=== PATIENT | female | born 1950 | race Caucasian/White ===

== ENCOUNTER → 2016-12-09 | Outpatient (CLI) | payer MEDICARE, OTHER ==
[~2016-12-09] MED LIST: ALFALFA250 MG PO; GLUCOPHAGE500 MG/TAB PO; LEVOXYL0.125 MG PO; MULTIPLE VITAMI1 CAP PO; [UNRECOGNIZED DRUG - OTHER] PO
== END ==
LOC: MC.RAD 13:04
DX: Z12.31 Encounter for screening mammogram for malignant neoplasm of breast (principal)

== ENCOUNTER → 2018-03-30 | Outpatient (CLI) | payer MEDICARE, OTHER | LOC: MC.RAD 09:00 | DX: Z12.31 Encounter for screening mammogram for malignant neoplasm of breast (principal) ==

== ENCOUNTER 2019-03-18 15:30 | Emergency (ER) | payer MEDICARE, OTHER ==
[~2019-03-18] VITALS: Ht 160 cm; Wt 63.2 kg
[2019-03-18 15:37] VITALS: TEMP 96.9
[2019-03-18 15:54] LABS: BASO % 0.3 % (0.0-2.0); EOS # 0.1 (0.0-0.7); EOS % 1.3 % (0-4.0); GRAN # 6.2 (1.4-6.5); GRAN % 60.2 % (42.2-75.2); HEMATOCRIT 43.1 % (37.0-47.0); HEMOGLOBIN 14.4 g/dl (12.5-16.0); LYMPH % 29.1 % (20.0-51.0); MEAN CELL VOLUME 88 fl (80.0-100.0); MEAN CORPUSCULAR HEMOGLOBIN 29 pg (27.0-31.0); MEAN CORPUSCULAR HGB CONC 33 g/dl (33.0-37.0); MEAN PLATELET VOLUME 10.6 fl (7.4-10.4); MONO # 0.9 (0.1-0.6); MONO % 8.8 % (1.7-9.3); PLATELET COUNT 276 K/mm3 (130-400); RED BLOOD COUNT 4.89 M/mm3 (4.10-5.30)
[2019-03-18 16:09] LABS: INR 0.8 (0.8-3.0); PROTHROMBIN TIME 9.3 SECONDS (9.7-12.8)
[2019-03-18 16:11] LABS: ALANINE AMINOTRANSFERASE 8 U/L (9-52); ALBUMIN 4.3 gm/dL (3.5-5.0); ALKALINE PHOSPHATASE 99 U/L (50-136); ANION GAP 8 mmol/L (7-16); AST,SGOT 22 U/L (15-37); BILIRUBIN,TOTAL 0.6 mg/dL (0.0-1.0); BLOOD UREA NITROGEN 13 mg/dL (7-17); CALCIUM 9.3 mg/dL (8.4-10.2); CARBON DIOXIDE 23 mmol/L (22-30); CHLORIDE 108 mmol/L (98-107); CREATININE, serum 0.93 (0.52-1.25); GLUCOSE 132 mg/dL (74-106); PARTIAL THROMBOPLASTIN TIME 32.4 SECONDS (26.0-37.0); POTASSIUM 3.7 mmol/L (3.4-5.0); SODIUM 139 mmol/L (137-145); TOTAL PROTEIN 7.1 gm/dL (6.4-8.2)
[2019-03-18 16:15] VITALS: BP 133/77; PULSE 69
[2019-03-18] MEDS ORDERED: ZESTRIL 10MG10 MG PO (16:18)
[2019-03-18] MEDS ORDERED: NORVASC 10MG10 MG PO (16:18)
[2019-03-18] MEDS ORDERED: PROBIOTIC FORMU1 CAP PO (16:21)
[2019-03-18 16:33] LABS: TROPONIN-I < 0.012 ng/mL (0.000-0.035)
== END 2019-03-18 16:40 | disposition short-term general hospital (02) ==
LOC: COL.ER 15:30
PROVIDERS: Emergency Medicine
DX: I21.09 ST elevation (STEMI) myocardial infarction involving other coronary artery of anterior wall (principal); I10 Essential (primary) hypertension; E11.9 Type 2 diabetes mellitus without complications; Z79.84 Long term (current) use of oral hypoglycemic drugs
CPT/HCPCS: J1644; J3101; J7030

== ENCOUNTER → 2019-04-10 | Outpatient (CLI) | payer MEDICARE, OTHER ==
[~2019-04-10] MED LIST changes: +NORVASC 10MG10 MG PO; +PROBIOTIC FORMU1 CAP PO; +ZESTRIL 10MG10 MG PO
== END ==
LOC: MC.RAD 09:35
DX: Z12.31 Encounter for screening mammogram for malignant neoplasm of breast (principal); N63.10 Unspecified lump in the right breast, unspecified quadrant

== ENCOUNTER 2019-06-24 22:18 | Emergency (ER) | payer MEDICARE ==
[~2019-06-24] VITALS: Ht 160 cm; Wt 61.8 kg
[2019-06-24 22:48] LABS: HEMATOCRIT 38.1 % (37.0-47.0); HEMOGLOBIN 12.6 g/dl (12.5-16.0); MEAN CELL VOLUME 87 fl (80.0-100.0); MEAN CORPUSCULAR HEMOGLOBIN 29 pg (27.0-31.0); MEAN CORPUSCULAR HGB CONC 33 g/dl (33.0-37.0); MEAN PLATELET VOLUME 10.6 fl (7.4-10.4); PLATELET COUNT 187 K/mm3 (130-400); RED BLOOD COUNT 4.36 M/mm3 (4.10-5.30); REDCELL DISTRIBUTION WIDTH-CV 13.4 % (11.5-14.5)
[2019-06-24 22:59] LABS: ALANINE AMINOTRANSFERASE 27 U/L (9-52); ALBUMIN 3.8 gm/dL (3.5-5.0); ALKALINE PHOSPHATASE 102 U/L (50-136); ANION GAP 11 mmol/L (7-16); AST,SGOT 25 U/L (15-37); BILIRUBIN,TOTAL 1.4 mg/dL (0.0-1.0); BLOOD UREA NITROGEN 26 mg/dL (7-17); CALCIUM 8.7 mg/dL (8.4-10.2); CARBON DIOXIDE 20 mmol/L (22-30); CHLORIDE 104 mmol/L (98-107); CREATININE, serum 1.11 (0.52-1.25); GLUCOSE 165 mg/dL (74-106); POTASSIUM 3.7 mmol/L (3.4-5.0); SODIUM 135 mmol/L (137-145); TOTAL PROTEIN 6.7 gm/dL (6.4-8.2)
[2019-06-24 23:11] LABS: TROPONIN-I < 0.012 ng/mL (0.000-0.035)
[2019-06-24 23:14] LABS: BAND 5 % (0-10); LYMPHOCYTE 7 % (20.0-51.0); NEUTROPHILS 80 % (42.0-75.2); PLATELET ESTIMATE NORMAL (NORMAL)
[2019-06-24 23:46] LABS: COLLECTION METHOD CLEAN CATCH
[2019-06-24 23:54] LABS: PH 5 (5-8); SQUAMOUS EPITHELIAL None Seen /hpf; URINE APPEARANCE Cloudy; URINE BACTERIA Moderate /hpf; URINE BILIRUBIN Negative (NEGATIVE); URINE BLOOD 2+ (NEGATIVE); URINE COLOR Yellow; URINE GLUCOSE Negative (NEGATIVE); URINE KETONE 1+ (NEGATIVE); URINE LEUKOCYTE ESTERASE 2+ (NEGATIVE); URINE NITRATE Positive (NEGATIVE); URINE PROTEIN(semi-quant) Negative (NEGATIVE); URINE UROBILINOGEN Negative (NEGATIVE)
[2019-06-25] MEDS ORDERED: CEPHALEXIN500 M1 PO (01:44)
[2019-06-25] MEDS ORDERED: ZOFRAN 4MG T4 MG/TAB PO (01:44)
[2019-06-25 02:08] VITALS: BP 106/52; PULSE 66; TEMP 98.7
== END 2019-06-25 02:08 | disposition home or self-care (01) ==
LOC: COL.ER 22:18
PROVIDERS: Emergency Medicine
DX: R10.9 Unspecified abdominal pain (principal); I25.10 Atherosclerotic heart disease of native coronary artery without angina pectoris; Z79.84 Long term (current) use of oral hypoglycemic drugs
CPT/HCPCS: A4216; J0696; J2405; J7030; Q9967

== ENCOUNTER 2019-07-24 14:56 | Outpatient (RCR) | payer MEDICARE ==
[~2019-07-24 14:56] MED LIST changes: +CEPHALEXIN500 M1 PO; +ZOFRAN 4MG T4 MG/TAB PO
== END 2019-07-25 | disposition home or self-care (01) ==
LOC: COL.CR
DX: I21.09 ST elevation (STEMI) myocardial infarction involving other coronary artery of anterior wall (principal); M25.461 Effusion, right knee; I10 Essential (primary) hypertension; E11.9 Type 2 diabetes mellitus without complications; Z72.0 Tobacco use; Z98.61 Coronary angioplasty status

== ENCOUNTER 2019-07-30 16:41 | Inpatient (IN) | payer MEDICARE, OTHER ==
[~2019-07-30] VITALS: Ht 160 cm; Wt 66.0 kg
[2019-07-30 17:18] LABS: BASO # 0.1 (0.0-0.2); BASO % 0.5 % (0.0-2.0); EOS # 0.2 (0.0-0.7); EOS % 1.4 % (0-4.0); GRAN # 7.2 (1.4-6.5); GRAN % 67.1 % (42.2-75.2); HEMATOCRIT 40.6 % (37.0-47.0); HEMOGLOBIN 13.1 g/dl (12.5-16.0); LYMPH # 2.2 (1.2-3.4); MEAN CELL VOLUME 89 fl (80.0-100.0); MEAN CORPUSCULAR HEMOGLOBIN 29 pg (27.0-31.0); MEAN CORPUSCULAR HGB CONC 32 g/dl (33.0-37.0); MEAN PLATELET VOLUME 10.4 fl (7.4-10.4); MONO % 9.7 % (1.7-9.3); PLATELET COUNT 210 K/mm3 (130-400); RED BLOOD COUNT 4.55 M/mm3 (4.10-5.30); REDCELL DISTRIBUTION WIDTH-CV 13.6 % (11.5-14.5)
[2019-07-30 17:24] LABS: INR 0.8 (0.8-3.0); PROTHROMBIN TIME 9.8 SECONDS (9.7-12.8)
[2019-07-30 17:26] LABS: PARTIAL THROMBOPLASTIN TIME 28.9 SECONDS (26.0-37.0)
[2019-07-30 17:30] LABS: ALANINE AMINOTRANSFERASE 28 U/L (9-52); ALBUMIN 3.9 gm/dL (3.5-5.0); ALKALINE PHOSPHATASE 82 U/L (50-136); ANION GAP 6 mmol/L (7-16); AST,SGOT 23 U/L (15-37); BILIRUBIN,TOTAL 0.5 mg/dL (0.0-1.0); BLOOD UREA NITROGEN 20 mg/dL (7-17); CALCIUM 9.2 mg/dL (8.4-10.2); CARBON DIOXIDE 27 mmol/L (22-30); CHLORIDE 107 mmol/L (98-107); CREATININE, serum 1.04 (0.52-1.25); GLUCOSE 184 mg/dL (74-106); LIPASE 114 U/L (23-300); POTASSIUM 3.9 mmol/L (3.4-5.0); SODIUM 140 mmol/L (137-145); TOTAL PROTEIN 6.5 gm/dL (6.4-8.2)
[2019-07-30] MEDS ORDERED: TOPROL XL 50MG50 MG PO (17:38)
[2019-07-30] MEDS ORDERED: LIPITOR 80MG80 MG PO (17:39)
[2019-07-30] MEDS ORDERED: PLAVIX 75MG TAB75 MG PO (17:39)
[2019-07-30 17:42] LABS: TROPONIN-I < 0.012 ng/mL (0.000-0.035)
[2019-07-30] MEDS ORDERED: ASPIRIN E.C. 8181 MG PO (21:41)
[2019-07-30 21:50] VITALS: BP 144/70; PULSE 55; TEMP 97.6
--- NOTE | 2019-07-30 22:00 | NUR ---
Received report from LisaRN in ED. Pt attived to medical unit via stretcher at 2130. Assessment complete. Alert and oriented. Denies any CP, SOB, headache, or dz at this time. Verbal, ambulatory and independent with self care. On RA. IV to LAC intact with heparin infusing, NS started. Tele monitor in place, leads checked. Questions answered. Needs met. Call light within reach.
[2019-07-31] VITALS (200 sets, daily range): BP systolic 110–166; BP diastolic 52–98; PULSE 43–63; TEMP 97.7–98.2; O2SAT 95–100
--- NOTE | 2019-07-31 05:33 | NUR ---
No complaints of CP or any discomfort throughout the night. NPO status since midnight. Pt understands POC, stress in the AM, lab draws, heparin drip. Questions answered. Assisted pt to BR. Ambulatory. Needs met. Call light within reach.
--- NOTE | 2019-07-31 07:00 | NUR ---
Report received from ROXANA Beckman. Pt in bed resting, denies needs, will continue to monitor.
--- NOTE | 2019-07-31 07:26 | NUR ---
Report given to ROXANA Benitez.
[2019-07-31 09:05] LABS: HEMATOCRIT 40.2 % (37.0-47.0); HEMOGLOBIN 12.8 g/dl (12.5-16.0); MEAN CELL VOLUME 89 fl (80.0-100.0); MEAN CORPUSCULAR HEMOGLOBIN 28 pg (27.0-31.0); MEAN CORPUSCULAR HGB CONC 32 g/dl (33.0-37.0); MEAN PLATELET VOLUME 10.6 fl (7.4-10.4); PLATELET COUNT 186 K/mm3 (130-400); RED BLOOD COUNT 4.52 M/mm3 (4.10-5.30); REDCELL DISTRIBUTION WIDTH-CV 13.5 % (11.5-14.5)
[2019-07-31 09:22] LABS: CHOLESTEROL RISK RATIO 3.3; CREATININE, serum 0.93 (0.52-1.25); POTASSIUM 4.1 mmol/L (3.4-5.0)
[2019-07-31 09:43] LABS: TROPONIN-I 0.049 ng/mL (0.000-0.035)
--- NOTE | 2019-07-31 10:03 | NUR ---
Assessment charted. PT doing well, NPO took sip of water with meds. Discussed plan for today, consent signed for heart catheterization. Pt agreeable to plan. C/o chest tightness at 2/10 but not uncomfortable. IVF to LA/C. Heparin gtt restarted per Abimbola, research manufacturing operator. Denies needs, will continue to monitor.
--- NOTE | 2019-07-31 10:34 | NUR ---
BENJAMIN met with the patient, her daughter (Tiffanie, ph#[phone]), and sister (Garrett) to discuss discharge plan. The patient lives alone in [place]. She reports independence with ADLs and does not have any DME. She is currently in Cardiac Rehab at [facility]. The patient's PCP is Dr. Jhon Jaimes and she receives her medications at [facility] or through [facility]. She reports no difficulties obtaining her meds. The patient's DPOA-HC is in EMR. Her DPOA-HC is her sons: Tarik Cage (ph#[phone]) and Gavin Cage (ph#[phone]). The patient plans to return home upon discharge and resume cardiac rehab. No additional needs at this time.
--- NOTE | 2019-07-31 11:36 | NUR ---
SEE MERGE DOCUMENTATION FOR MEDICATION ADMINISTRATION TIMES AND INTRA/POST PROCEDURE DOCUMENTATION. PLAN FOR RIGHT RADIAL ACCESS, BOTH RIGHT WRIST AND GROIN PREPPED.
--- NOTE | 2019-07-31 12:36 | NUR ---
Pt went down to laboratory manager today at 1100, receiveed notification of transfer to ICU. Called and gave report to ROXANA Cazares in ICU who will resume care.
--- NOTE | 2019-07-31 13:50 | NUR ---
1315: PT ARRIVED FROM PERIPHERAL VASCULAR TECH. PT HAS RIGHT RADIAL SITE WITH TR BAND IN PLACE. PT HAS SWELLING TO RIGHT FOREARM TO WHICH PERIPHERAL VASCULAR TECH APPLIED AN FIDENCIO WRAP AND BP CUFF TO UPPER ARM PER . PT'S FINGERS TO RIGH HAND ARE DUSKY AND SLIGHTLY NUMB PER PT. PT HAS A BRUISE UNDERNEATH HER TR BAND. PT PLACED IN ICU MONITORING. PT HAS A BRACHIAL AND RADIAL PULSE PER DOPPLER. PT IS SB ON TELE DIPPING TO 43. 1345: CALL PLACED TO TO CLARIFY FIDENCIO WRAP, BP CUFF, AND TR BAND TO RIGHT ARM. STATED TO DC BP CUFF AT ONE HOUR AND FIDENCIO WRAP AT TWO HOURS. TR BAND REMOVAL PER PROTOCOL. ALSO, NOTIFIED OF BRADYCARDIA. NO NEW ORDERS AT THIS TIME. WILL CONTINUE TO MONITOR.
--- NOTE | 2019-07-31 15:04 | NUR ---
Hank wrap removed from Pt's right forearm. Brachial and radial pulse still doppled. Pt's fingers still dusky. TR band in place with bruise underneath.
--- NOTE | 2019-07-31 15:40 | NUR ---
PT HAVING INCREASED PAIN AND NUMBNESS TO RIGHT FOREARM AND HAND. PT STILL HAS DOPPLED PULSES TO BRACHIAL AND RADIAL. VETERINARY NURSE ASSESS PT. 4ML OF AIR REMOVED FROM TR BAND. FOREARM MEASURED. 1545: DR. PALOMINO CALLED AND NOTIFIED. 1550: CALL PLACED TO WITH NO ANSWER. 1554: CALL PLACED TO WITH NO ANSWER. 1555: BEDSIDE AND EVALUATED PT. 1557: SPOKE WITH EMILIANO SCHMIDT WITH CARDIOLOGY AND INFORMED OF ABOVE. STATES SHE WILL INFORM WHO STARTED PTS ANGIO AND WHO IS HER INITIAL CARDIOLOGY CONSULT.
--- NOTE | 2019-07-31 16:05 | NUR ---
2ML REMOVED FROM TR BAND. PULSES DOPPLED BRACHIAL AND RADIAL. RECEIVED CALL FROM EMILIANO SCHMIDT WITH CARDIOLOGY. SHE STATES WANTS US TO RE-WRAP RIGHT FOREARM AND APPLY ICE. SPOKE WITH EMILIANO SCHMIDT. STATES DO NOT REWRAP ARM AND HE IS AWAITING A CALL FROM TO DISCUSS PT.
--- NOTE | 2019-07-31 16:15 | NUR ---
BEDSIDE TO EVALUATE PT. PT HAS DOPPLED PULSES. ARM ELEVATED AND ICE PLACED. MORE AIR REMOVED FROM TR BAND. COLORING TO FINGERS HAS IMPROVED. BEDSIDE WELL. WILL ORDER VENOUS/ARTERIAL DUPLEX PER .
--- NOTE | 2019-07-31 17:58 | NUR ---
TR BAND REMOVED AND BANDAID APPLIED. PT'S RADIAL AND BRACHIAL PULSES DOPPLED. LOWER FOREARM MEASED AND HAS DECREASED TO 8.5IN AND UPPER FOREARM DOWN TO 12.5IN. PT STATES PAIN AND NUMBNESS HAS IMPROVED. ARM STILL ELEVATED. WILL CONTINUE TO MONITOR. UPDATED.
--- NOTE | 2019-07-31 19:00 | NUR ---
Received bedside report from ROXANA Cazares. Patient resting quietly in bed at this time. Denies presence of pain or discomfort. Patient's arm is elevated and being iced on and off. Upper arm measuring 11.5 inches, lower arm measuring 8.5 inches. Radial and brachial pulses palpated and dopplered. Cap refill less than 3 seconds. Will continue to monitor.
[2019-08-01] VITALS: BP 119/56; PULSE 48; TEMP 97.7
[2019-08-01 04:00] VITALS: BP 109/64; PULSE 55; TEMP 97.9
--- NOTE | 2019-08-01 04:58 | NUR ---
Patient's brachial pulses dopplered every hour throughout shift. Radial pulses have been palpable and 2+. Arm measurements taken every 2 hours. Currently, the lower right arm is measuring 8.5 inches; approx. 2 inches below the elbow, arm is 10.75 inches, visibly swollen, and firm; upper arm is 11 inches. Patient reports 3/10 dull, aching pain in portion of arm below elbow. Warm blanket applied and PRN pain medication administered. Will continue to monitor.
[2019-08-01 05:13] LABS: BASO % 0.3 % (0.0-2.0); EOS # 0.2 (0.0-0.7); EOS % 1.8 % (0-4.0); GRAN # 6.5 (1.4-6.5); GRAN % 73.1 % (42.2-75.2); HEMOGLOBIN 11.5 g/dl (12.5-16.0); LYMPH # 1.3 (1.2-3.4); LYMPH % 14.6 % (20.0-51.0); MEAN CELL VOLUME 87 fl (80.0-100.0); MEAN CORPUSCULAR HEMOGLOBIN 28 pg (27.0-31.0); MEAN CORPUSCULAR HGB CONC 32 g/dl (33.0-37.0); MEAN PLATELET VOLUME 10.6 fl (7.4-10.4); MONO # 0.9 (0.1-0.6); MONO % 9.9 % (1.7-9.3); PLATELET COUNT 184 K/mm3 (130-400); RED BLOOD COUNT 4.07 M/mm3 (4.10-5.30); REDCELL DISTRIBUTION WIDTH-CV 13.7 % (11.5-14.5)
[2019-08-01 05:17] LABS: CALCIUM 8.7 mg/dL (8.4-10.2); CREATININE, serum 0.89 (0.52-1.25); POTASSIUM 4.1 mmol/L (3.4-5.0)
[2019-08-01 05:18] LABS: HEMATOCRIT 35.5 % (37.0-47.0)
--- NOTE | 2019-08-01 07:20 | NUR ---
Report received from Radha SCHMIDT and care resumed.
--- NOTE | 2019-08-01 07:38 | NUR ---
Report given to ROXANA Higginbotham.
[2019-08-01 08:00] VITALS: BP 112/63; PULSE 59; TEMP 97.8
--- NOTE | 2019-08-01 10:03 | NUR ---
Dr Randall in to see pt at this time.
--- NOTE | 2019-08-01 13:22 | NUR ---
Pt INT dc'd and pt dressed. Pt given discharge instructions once daughter present. Pt taken out by wheelchair to car for discharge at 1315.
== END 2019-08-01 13:15 | disposition home or self-care (01) | DRG 251 ==
LOC: COL.ER 16:41 → MEDICAL 19:07 → ICU 19:07 → MEDICAL 07-31 12:07 → ICU 07-31 12:07
PROVIDERS: Emergency Medicine; Nurse Practitioner Family; Physician Assistant; ADMIT Student in an Organized Health Care Education/Training Program
PROC: 02703ZZ Dilation of Coronary Artery, One Artery, Percutaneous Approach (ICD-10-PCS; principal; 2019-07-31)
PROC: 4A023N7 Measurement of Cardiac Sampling and Pressure, Left Heart, Percutaneous Approach (ICD-10-PCS; 2019-07-31)
PROC: B2111ZZ Fluoroscopy of Multiple Coronary Arteries using Low Osmolar Contrast (ICD-10-PCS; 2019-07-31)
DX: T82.855A Stenosis of coronary artery stent, initial encounter (principal); Y83.9 Surgical procedure, unspecified as the cause of abnormal reaction of the patient, or of later complication, without mention of misadventure at the time of the procedure; I25.10 Atherosclerotic heart disease of native coronary artery without angina pectoris; I10 Essential (primary) hypertension; E03.9 Hypothyroidism, unspecified; E11.9 Type 2 diabetes mellitus without complications; I25.5 Ischemic cardiomyopathy; M19.90 Unspecified osteoarthritis, unspecified site; I25.2 Old myocardial infarction; Z79.84 Long term (current) use of oral hypoglycemic drugs; Z96.642 Presence of left artificial hip joint; Z95.5 Presence of coronary angioplasty implant and graft; Z90.710 Acquired absence of both cervix and uterus; Z87.891 Personal history of nicotine dependence
CPT/HCPCS: OP; 99223-AI; G0378; J1644; J2250; J3010; J7030; Q9967

== ENCOUNTER 2019-09-01 13:09 | Outpatient (RCR) | payer MEDICARE ==
[~2019-09-01 13:09] MED LIST changes: +ASPIRIN E.C. 8181 MG PO; +LIPITOR 80MG80 MG PO; +PLAVIX 75MG TAB75 MG PO; +TOPROL XL 50MG50 MG PO
== END 2019-10-26 | disposition home or self-care (01) ==
LOC: COL.CR
DX: Z48.812 Encounter for surgical aftercare following surgery on the circulatory system (principal); Z95.5 Presence of coronary angioplasty implant and graft; I25.2 Old myocardial infarction; I10 Essential (primary) hypertension; I25.10 Atherosclerotic heart disease of native coronary artery without angina pectoris

== ENCOUNTER 2019-09-15 15:09 | Outpatient (RCR) | payer SELFPAY | END 2019-12-14 | disposition home or self-care (01) | LOC: COL.CR | DX: Z02.89 Encounter for other administrative examinations (principal) ==

== ENCOUNTER 2019-12-14 17:48 | Emergency (ER) | payer MEDICARE ==
[~2019-12-14] VITALS: Ht 160 cm; Wt 68.6 kg
[2019-12-14 17:52] VITALS: TEMP 98.6
[2019-12-14 18:19] LABS: BASO # 0.1 (0.0-0.2); BASO % 0.5 % (0.0-2.0); EOS # 0.2 (0.0-0.7); EOS % 1.5 % (0-4.0); GRAN # 6.9 (1.4-6.5); GRAN % 65.5 % (42.2-75.2); HEMATOCRIT 41.1 % (37.0-47.0); HEMOGLOBIN 13.1 g/dl (12.5-16.0); LYMPH # 2.4 (1.2-3.4); LYMPH % 23.1 % (20.0-51.0); MEAN CELL VOLUME 89 fl (80.0-100.0); MEAN CORPUSCULAR HEMOGLOBIN 28 pg (27.0-31.0); MEAN CORPUSCULAR HGB CONC 32 g/dl (33.0-37.0); MEAN PLATELET VOLUME 10.6 fl (7.4-10.4); PLATELET COUNT 252 K/mm3 (130-400); RED BLOOD COUNT 4.64 M/mm3 (4.10-5.30); REDCELL DISTRIBUTION WIDTH-CV 13.8 % (11.5-14.5)
[2019-12-14 18:22] LABS: INR 0.9 (0.8-3.0); PROTHROMBIN TIME 10.4 SECONDS (9.7-12.8)
[2019-12-14 18:25] LABS: PARTIAL THROMBOPLASTIN TIME 31.5 SECONDS (26.0-37.0)
[2019-12-14 18:28] LABS: ALANINE AMINOTRANSFERASE 27 U/L (4-34); ALBUMIN 4.2 gm/dL (3.5-5.0); ALKALINE PHOSPHATASE 105 U/L (50-136); ANION GAP 9 mmol/L (7-16); AST,SGOT 33 U/L (15-37); BILIRUBIN,TOTAL 0.9 mg/dL (0.0-1.0); BLOOD UREA NITROGEN 23 mg/dL (7-17); CARBON DIOXIDE 24 mmol/L (22-30); CHLORIDE 101 mmol/L (98-107); CREATININE, serum 1.03 (0.52-1.25); GLUCOSE 209 mg/dL (74-106); LIPASE 116 U/L (23-300); SODIUM 133 mmol/L (137-145); TOTAL PROTEIN 7.1 gm/dL (6.4-8.2)
[2019-12-14 18:39] LABS: TROPONIN-I < 0.012 ng/mL (0.000-0.035)
[2019-12-14 21:19] VITALS: BP 158/66; PULSE 76
== END 2019-12-14 21:26 | disposition home or self-care (01) ==
LOC: COL.ER 17:48
PROVIDERS: Emergency Medicine
DX: R07.89 Other chest pain (principal); E11.9 Type 2 diabetes mellitus without complications; I10 Essential (primary) hypertension; E78.5 Hyperlipidemia, unspecified; I25.10 Atherosclerotic heart disease of native coronary artery without angina pectoris; Z79.84 Long term (current) use of oral hypoglycemic drugs; Z79.82 Long term (current) use of aspirin; Z79.02 Long term (current) use of antithrombotics/antiplatelets; Z95.5 Presence of coronary angioplasty implant and graft

== ENCOUNTER → 2020-04-11 | Outpatient (CLI) | payer MEDICARE, OTHER | LOC: MC.RAD 09:33 | DX: Z12.31 Encounter for screening mammogram for malignant neoplasm of breast (principal) ==

== ENCOUNTER 2020-07-06 16:18 | Observation (INO) | payer MEDICARE ==
[~2020-07-06] VITALS: Ht 160 cm; Wt 74.3 kg
[2020-07-06 17:03] LABS: INR 0.9 (0.8-3.0); PROTHROMBIN TIME 10.3 SECONDS (9.7-12.8)
[2020-07-06 17:04] LABS: BASO % 0.3 % (0.0-2.0); EOS # 0.2 (0.0-0.7); EOS % 1.8 % (0-4.0); GRAN % 65.4 % (42.2-75.2); LYMPH % 22.1 % (20.0-51.0); MEAN CELL VOLUME 86 fl (80.0-100.0); MEAN CORPUSCULAR HEMOGLOBIN 28 pg (27.0-31.0); MEAN CORPUSCULAR HGB CONC 33 g/dl (33.0-37.0); MEAN PLATELET VOLUME 10.8 fl (7.4-10.4); MONO # 0.9 (0.1-0.6); MONO % 10.1 % (1.7-9.3); PLATELET COUNT 258 K/mm3 (130-400); RED BLOOD COUNT 4.64 M/mm3 (4.10-5.30); REDCELL DISTRIBUTION WIDTH-CV 13.9 % (11.5-14.5)
[2020-07-06 17:06] LABS: PARTIAL THROMBOPLASTIN TIME 27.6 SECONDS (26.0-37.0)
[2020-07-06 17:09] LABS: ALANINE AMINOTRANSFERASE 15 U/L (4-34); ALBUMIN 3.9 gm/dL (3.5-5.0); ALKALINE PHOSPHATASE 115 U/L (50-136); ANION GAP 10 mmol/L (7-16); AST,SGOT 33 U/L (15-37); BILIRUBIN,TOTAL 0.6 mg/dL (0.0-1.0); BLOOD UREA NITROGEN 20 mg/dL (7-17); CALCIUM 9.2 mg/dL (8.4-10.2); CARBON DIOXIDE 25 mmol/L (22-30); CHLORIDE 103 mmol/L (98-107); CREATINE KINASE 22 U/L (30-135); CREATININE, serum 1.04 (0.52-1.25); GLUCOSE 188 mg/dL (74-106); LIPASE 178 U/L (23-300); POTASSIUM 3.8 mmol/L (3.4-5.0); SODIUM 138 mmol/L (137-145); TOTAL PROTEIN 6.9 gm/dL (6.4-8.2)
[2020-07-06 17:24] LABS: TROPONIN-I < 0.012 ng/mL (0.000-0.035)
[2020-07-06] MEDS ORDERED: AMOXICILLIN 8751 TAB PO (18:44)
[2020-07-06] MEDS ORDERED: ONE-A-DAY ESSE1 EACH PO (23:26)
[2020-07-06 23:32] VITALS: BP 140/53; PULSE 70; TEMP 97.7
[2020-07-07 02:01] LABS: TROPONIN-I < 0.012 ng/mL (0.000-0.035)
[2020-07-07 02:19] LABS: TSH w REFLEX 0.718 uIU/mL (0.465-4.680)
[2020-07-07 03:22] VITALS: BP 133/55; PULSE 54; TEMP 98
--- NOTE | 2020-07-07 05:09 | NUR ---
EKG was performed in ED
--- NOTE | 2020-07-07 06:00 | NUR ---
Patient has been resting comfortably since arriving to the floor. No complaints of pain or nausea. She is hoping to go home later today. She does not have any cough, shortness of breath and is not requiring oxygen. No other changes at this time. Call light within reach.
[2020-07-07 06:34] LABS: COLLECTION METHOD CLEAN CATCH
[2020-07-07 06:52] LABS: MUCOUS Present /lpf; PH 5 (5-8); URINE APPEARANCE Hazy; URINE BACTERIA Rare /hpf; URINE BILIRUBIN Negative (NEGATIVE); URINE BLOOD Negative (NEGATIVE); URINE COLOR Yellow; URINE GLUCOSE Negative (NEGATIVE); URINE KETONE Negative (NEGATIVE); URINE LEUKOCYTE ESTERASE 2+ (NEGATIVE); URINE NITRATE Negative (NEGATIVE); URINE PROTEIN(semi-quant) Negative (NEGATIVE)
[2020-07-07 07:43] VITALS: BP 139/58; PULSE 61; TEMP 97.9
[2020-07-07 08:00] VITALS: BP 120/51; PULSE 53; TEMP 98.1
--- NOTE | 2020-07-07 08:00 | NUR ---
Patient laying in bed with the TV on. A&Ox4. VSS. IV CDI, fluids infusing. Denies pain and discomfort. Nitro patch right upper chest. Patient just waiting on the doctors to round and is hoping to go home today. No further needs expressed from the patient. Call light within reach
[2020-07-07 08:12] LABS: BASO % 0.4 % (0.0-2.0); EOS # 0.1 (0.0-0.7); EOS % 1.3 % (0-4.0); GRAN % 74.8 % (42.2-75.2); HEMOGLOBIN 11.6 g/dl (12.5-16.0); LYMPH # 1.2 (1.2-3.4); LYMPH % 14.5 % (20.0-51.0); MEAN CELL VOLUME 86 fl (80.0-100.0); MEAN CORPUSCULAR HEMOGLOBIN 28 pg (27.0-31.0); MEAN CORPUSCULAR HGB CONC 33 g/dl (33.0-37.0); MEAN PLATELET VOLUME 10.9 fl (7.4-10.4); MONO # 0.7 (0.1-0.6); MONO % 8.6 % (1.7-9.3); PLATELET COUNT 213 K/mm3 (130-400); RED BLOOD COUNT 4.11 M/mm3 (4.10-5.30)
[2020-07-07 08:16] LABS: HEMATOCRIT 35.3 % (37.0-47.0)
[2020-07-07 08:23] LABS: CREATININE, serum 1.08 (0.52-1.25)
[2020-07-07] MEDS ORDERED: PROAIR HFA0.09 MG/AC IH (10:57)
[2020-07-07] MEDS ORDERED: NITROSTAT0.4 MG/TAB SL (10:58)
[2020-07-07] MEDS ORDERED: OMNICEF 300MG300 MG PO (10:58)
--- NOTE | 2020-07-07 11:20 | NUR ---
Discharge paperwork reviewed with the patient. Patient verbalized an understanding to follow doctors orders. IV removed, tip intact, patient toletated well. Gauze and tape covering. Patient independent in the room. Patient ambulated with nursing staff with personal belongings and discharge paperwork. No following needs expressed from the patient.
== END 2020-07-07 11:38 | disposition home or self-care (01) ==
LOC: COL.ER 16:18 → MEDICAL 20:59
PROVIDERS: Emergency Medicine; Nurse Practitioner Family
DX: U07.1 COVID-19 (principal); I25.10 Atherosclerotic heart disease of native coronary artery without angina pectoris; I25.2 Old myocardial infarction; J32.9 Chronic sinusitis, unspecified; N39.0 Urinary tract infection, site not specified; I10 Essential (primary) hypertension; E78.5 Hyperlipidemia, unspecified; E11.9 Type 2 diabetes mellitus without complications; E03.9 Hypothyroidism, unspecified; M19.90 Unspecified osteoarthritis, unspecified site; Z20.828 Contact with and (suspected) exposure to other viral communicable diseases; Z79.82 Long term (current) use of aspirin; Z79.02 Long term (current) use of antithrombotics/antiplatelets; Z90.710 Acquired absence of both cervix and uterus; Z96.642 Presence of left artificial hip joint; Z87.891 Personal history of nicotine dependence; Z88.1 Allergy status to other antibiotic agents; Z88.8 Allergy status to other drugs, medicaments and biological substances
CPT/HCPCS: 99223-AI; G0378; J0360; J1885; J7030

== ENCOUNTER 2021-04-28 16:31 | Emergency (ER) | payer MEDICARE, OTHER ==
[~2021-04-28] VITALS: Ht 157.5 cm; Wt 69.1 kg
[~2021-04-28 16:31] MED LIST changes: +AMOXICILLIN 8751 TAB PO; +NITROSTAT0.4 MG/TAB SL; +OMNICEF 300MG300 MG PO; +ONE-A-DAY ESSE1 EACH PO; +PROAIR HFA0.09 MG/AC IH
[2021-04-28 19:33] LABS: BASO % 0.4 % (0.0-2.0); EOS # 0.2 K/mm3 (0.0-0.7); EOS % 1.4 % (0-4.0); GRAN # 7.6 K/mm3 (1.4-6.5); GRAN % 68.1 % (42.2-75.2); HEMATOCRIT 43.8 % (37.0-47.0); HEMOGLOBIN 13.6 g/dl (12.5-16.0); LYMPH # 2.3 K/mm3 (1.2-3.4); LYMPH % 20.4 % (20.0-51.0); MEAN CELL VOLUME 90 fl (80.0-100.0); MEAN CORPUSCULAR HEMOGLOBIN 28 pg (27.0-31.0); MEAN CORPUSCULAR HGB CONC 31 g/dl (33.0-37.0); MEAN PLATELET VOLUME 10.9 fl (7.4-10.4); MONO % 9.4 % (1.7-9.3); PLATELET COUNT 236 K/mm3 (130-400); RED BLOOD COUNT 4.89 M/mm3 (4.10-5.30); REDCELL DISTRIBUTION WIDTH-CV 14.7 % (11.5-14.5)
[2021-04-28 19:49] LABS: ALBUMIN 3.7 gm/dL (3.4-4.8); BILIRUBIN,TOTAL 0.6 mg/dL (0.2-1.2); CALCIUM 10.1 mg/dL (8.4-10.2); CREATININE, serum 1.08 mg/dL (0.57-1.11); POTASSIUM 4.1 mmol/L (3.5-4.5)
[2021-04-28 19:57] LABS: TROPONIN-I 0.01 ng/mL (0.00-0.033)
[2021-04-28] MEDS ORDERED: PEPCID 20MG TAB20 MG PO (20:22)
[2021-04-28 20:42] VITALS: BP 123/74; PULSE 68; TEMP 98.2
== END 2021-04-28 20:42 | disposition home or self-care (01) ==
LOC: COL.ER 16:31
PROVIDERS: Emergency Medicine
DX: R07.9 Chest pain, unspecified (principal); I25.10 Atherosclerotic heart disease of native coronary artery without angina pectoris; I10 Essential (primary) hypertension; E03.9 Hypothyroidism, unspecified; E11.9 Type 2 diabetes mellitus without complications; M19.90 Unspecified osteoarthritis, unspecified site; D72.829 Elevated white blood cell count, unspecified; Z95.5 Presence of coronary angioplasty implant and graft; Z86.74 Personal history of sudden cardiac arrest; Z79.84 Long term (current) use of oral hypoglycemic drugs; Z79.82 Long term (current) use of aspirin; Z79.890 Hormone replacement therapy; Z79.899 Other long term (current) drug therapy

== ENCOUNTER → 2021-05-12 | Outpatient (CLI) | payer MEDICARE, OTHER ==
[~2021-05-12] MED LIST changes: +PEPCID 20MG TAB20 MG PO
== END ==
LOC: MC.RAD 12:59
DX: Z12.31 Encounter for screening mammogram for malignant neoplasm of breast (principal)

== ENCOUNTER 2021-08-20 08:24 | Outpatient (CLI) | payer MEDICARE, OTHER ==
[~2021-08-20] VITALS: Ht 157.5 cm; Wt 64.6 kg
[~2021-08-20 08:24] MED LIST changes: +MASON NATURAL2000 IU PO; +NORCO 325 MG-51 TAB PO; +TOPROL XL 25MG25 MG PO; +VITAMIN C500 MG PO
[2021-08-20 09:06] VITALS: BP 180/76; PULSE 77; TEMP 98.1
[2021-08-20 10:50] VITALS: BP 171/58; PULSE 56
[2021-08-20 11:15] VITALS: BP 126/49; PULSE 49
[2021-08-20 11:33] VITALS: BP 142/48; PULSE 50
[2021-08-20 11:50] VITALS: BP 136/55; PULSE 77
--- NOTE | 2021-08-20 12:00 | NUR ---
DISCHARGE INSTRUCTIONS GIVEN TO PT BY FORTUNATO.ESCORTED OUT BY FORTUNATO.
== END 2021-08-20 16:28 ==
LOC: COL.RAD 08:24
DX: M48.061 Spinal stenosis, lumbar region without neurogenic claudication (principal); M47.816 Spondylosis without myelopathy or radiculopathy, lumbar region; M47.896 Other spondylosis, lumbar region
CPT/HCPCS: Q9965

== ENCOUNTER 2021-12-22 09:57 | Emergency (ER) | payer MEDICARE, OTHER ==
[~2021-12-22] VITALS: Ht 157.5 cm; Wt 61.8 kg
[2021-12-22 10:40] VITALS: TEMP 97
[2021-12-22 13:03] VITALS: BP 140/70; PULSE 77
== END 2021-12-22 13:04 | disposition home or self-care (01) ==
LOC: COL.ER 09:57
DX: S20.211A Contusion of right front wall of thorax, initial encounter (principal); M25.551 Pain in right hip; W10.9XXA Fall (on) (from) unspecified stairs and steps, initial encounter; Y92.017 Garden or yard in single-family (private) house as the place of occurrence of the external cause

== ENCOUNTER → 2022-09-02 | Outpatient (CLI) | payer MEDICARE, OTHER ==
[~2022-09-02] MED LIST changes: +IMDUR 60MG60 MG/TAB PO; +NORVASC 5MG5 MG/TAB PO; +RANEXA 500MG T500 MG PO
== END ==
LOC: MC.RAD 09:00
DX: Z12.31 Encounter for screening mammogram for malignant neoplasm of breast (principal)

== ENCOUNTER → 2022-12-17 | Outpatient (CLI) | payer MEDICARE, OTHER | LOC: COL.RAD 14:15 | DX: M25.551 Pain in right hip (principal); Z96.641 Presence of right artificial hip joint ==